=== PATIENT | female | born 1980 | race Caucasian/White ===

== ENCOUNTER 2023-12-03 02:49 | Inpatient (IN) | payer MEDICAID ==
[~2023-12-03] VITALS: Ht 167.6 cm; Wt 90.4 kg
[2023-12-03] MEDS ORDERED: ZOLPIDEM TARTRATE 10 MG TABLET PO PRN (03:00)
[2023-12-03] MEDS ORDERED: HALOPERIDOL 5 MG TABLET PO PRN (03:00)
[2023-12-03] MEDS ORDERED: LORazepam 2 MG TABLET PO PRN (03:00)
[2023-12-03] MEDS ORDERED: PNEUMOCOCCAL VACCINE POLYVALENT 0.5 ML SYRINGE [PPSV23] IM. ONE (12:00)
[2023-12-03] MEDS ORDERED: INFLUENZA VIRUS VACCINE QVS 2023-24 (6MO+)/PF 60 MCG/0.5 ML SYRINGE IM. ONE (12:00)
[2023-12-03] MEDS ORDERED: LISI-893 PO (12:47)
[2023-12-03] MEDS ORDERED: METF-81 PO (12:47)
[2023-12-03] MEDS ORDERED: ARIP15TA27 PO (12:47)
[2023-12-03] MEDS ORDERED: AMPH10CA PO (12:47)
[2023-12-03 13:35] VITALS: BP 140/86; PULSE 86; RESP 18; TEMP 97.3; O2SAT 98
[2023-12-03] MEDS: MetFORMIN HCL 500 MG TABLET PO SCH (16:56)
[2023-12-04] MEDS: LISINOPRIL 10 MG TABLET PO SCH ×2 (08:30→08:35)
[2023-12-04] MEDS ORDERED: MAGNESIUM HYDROXIDE SUSPENSION 30 ML UDCUP PO PRN (09:00)
[2023-12-04] MEDS ORDERED: ACETAMINOPHEN 325 MG TABLET PO PRN (09:00)
[2023-12-04] MEDS ORDERED: DOCUSATE SODIUM 100 MG CAPSULE PO PRN (09:00)
[2023-12-04] MEDS ORDERED: MAG HYDROX/ALUMINUM HYD/SIMETH ES 30 ML SUSPENSION UDCUP PO PRN (09:00)
[2023-12-04] MEDS ORDERED: IBUPROFEN 400 MG TABLET PO PRN (09:00)
[2023-12-04] MEDS ORDERED: ALBUTEROL SULFATE HFA 90 MCG/PUFF 8 GM INHALER IH PRN (09:00)
[2023-12-04] MEDS ORDERED: LOPERAMIDE HCL 2 MG CAPSULE PO PRN (09:00)
[2023-12-04] MEDS ORDERED: PETROLATUM,WHITE 28 GM JELLY TP PRN (09:00)
[2023-12-04] MEDS ORDERED: CloNIDine HCL 0.1 MG TABLET PO PRN (09:00)
[2023-12-04] MEDS ORDERED: NICOTINE 14 MG/24 HOUR PATCH TD PRN (09:00)
[2023-12-04] MEDS ORDERED: GuaiFENesin/D-METHORPHAN [SUGAR-FREE] 200-20MG/10 ML SYRUP UDCUP PO PRN (09:00)
[2023-12-04] MEDS ORDERED: ONDANSETRON HCL 4 MG TABLET PO PRN (09:00)
[2023-12-04] MEDS: ARIPiprazole 15 MG TABLET PO SCH (09:45)
[2023-12-04] MEDS: MetFORMIN HCL 500 MG TABLET PO SCH (16:32)
[2023-12-04] MEDS ORDERED: NICOTINE 14 MG/24 HOUR PATCH TD ONE (17:00)
[2023-12-04 20:33] VITALS: BP 135/84; PULSE 81; RESP 16; TEMP 97.5; O2SAT 98
[2023-12-05 08:18] VITALS: BP 119/76; PULSE 79; RESP 16; TEMP 97.8; O2SAT 96
[2023-12-05] MEDS: ARIPiprazole 15 MG TABLET PO SCH (08:29)
[2023-12-05] MEDS: NICOTINE 21 MG/24 HOUR PATCH TD SCH (08:29)
[2023-12-05] MEDS: LISINOPRIL 10 MG TABLET PO SCH (08:29)
[2023-12-05 08:34] LABS: CHOL/HDL RATIO 4.2 (3.9-5.7); FREE T4 (FREE THYROXINE) 0.87 ng/dL (0.76-1.46); THYROID STIMULATING HORMONE 0.75 uIU/mL (0.36-3.74)
[2023-12-05 09:07] LABS: HEMOGLOBIN A1C 5.4 % (3.8-5.6)
[2023-12-05] MEDS: MetFORMIN HCL 500 MG TABLET PO SCH ×2 (16:10→17:00)
[2023-12-05 20:42] VITALS: BP 108/74; PULSE 84; RESP 16; TEMP 97.8; O2SAT 100
[2023-12-06] MEDS: LISINOPRIL 10 MG TABLET PO SCH (08:22)
[2023-12-06 08:23] VITALS: BP 106/66; PULSE 79; RESP 16; TEMP 98; O2SAT 99
[2023-12-06] MEDS: NICOTINE 21 MG/24 HOUR PATCH TD SCH (08:25)
[2023-12-06] MEDS: ARIPiprazole 15 MG TABLET PO SCH (08:25)
[2023-12-06] MEDS ORDERED: LISI-893 PO (11:38)
[2023-12-06] MEDS ORDERED: METF-81 PO (11:38)
[2023-12-06] MEDS ORDERED: ARIP15TA27 PO (11:38)
== END 2023-12-06 18:00 | disposition home or self-care (01) | DRG 750 ==
LOC: B3A 13:36
PROVIDERS: ADMIT Psychiatry & Neurology Psychiatry; ATTEND Psychiatry & Neurology Psychiatry
PROC: GZHZZZZ Group Psychotherapy (ICD-10-PCS; principal; 2023-12-04)
DX: F25.0 Schizoaffective disorder, bipolar type (principal); E11.9 Type 2 diabetes mellitus without complications; I10 Essential (primary) hypertension; J45.909 Unspecified asthma, uncomplicated; T42.4X2A Poisoning by benzodiazepines, intentional self-harm, initial encounter; Y92.89 Other specified places as the place of occurrence of the external cause; Z79.899 Other long term (current) drug therapy; Z81.8 Family history of other mental and behavioral disorders; Z88.8 Allergy status to other drugs, medicaments and biological substances; Z91.030 Bee allergy status
CPT/HCPCS: 80061; 83036; 84439; 84443